=== PATIENT | female | born 1965 | race Caucasian/White ===

== ENCOUNTER → 2025-05-01 | Outpatient (CLI) | payer MEDICAID, SELFPAY ==
--- NOTE | 2025-05-01 09:41 | XR_ITS ---
Examination: Bilateral hips, AP pelvis, 5 views Technique: AP, lateral views both hips, AP pelvis, 5 views Exam date and time: May 01, 2025, 0957 hours INDICATION: Bilateral hip pain beginning 2 weeks ago. FINDINGS: Prominent osteopenia Mild narrowing hip joints No hip or pelvic fracture No hip dislocations IMPRESSION: Mild narrowing hip joints
--- NOTE | 2025-05-01 09:41 | XR_ITS ---
EXAMINATION: Right knee 4 views TECHNIQUE: AP oblique lateral axial right knee 4 views Date and time: May 01, 2025, 10 0 7:00 a.m. INDICATIONS: Right knee pain beginning 2 weeks ago. 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
--- NOTE | 2025-05-01 09:41 | XR_ITS ---
Examination: Foot, right, 3 views Technique: AP, oblique, lateral views foot, 3 views Date and time of exam: January 30, 2025, 0957 hours INDICATION: Right foot weakness and pain 2 weeks difficulty walking. FINDINGS: Prominent osteopenia Mild osteoarthritis first metatarsophalangeal joint 4 mm posterior 8 mm plantar bony calcaneal spurs No fracture IMPRESSION: Mild osteoarthritis first metatarsophalangeal joint Plantar posterior bony calcaneal spurs as above
--- NOTE | 2025-05-01 09:41 | XR_ITS ---
Examination: Lumbar spine, 5 views Technique: Lumbar spine AP, lateral, coned lateral lower lumbar spine, bilateral obliques 5 views Exam date and time: May 01, 2025, 0957 hours INDICATIONS: Lower back pain beginning 2 weeks ago. FINDINGS: Thoracolumbar levoscoliosis 12 degrees Severe osteopenia Moderate facet arthropathy Prominent thoracic spondylosis Grade 3 spondylolisthesis L5 on S1 with advanced degenerative disc disease at this level IMPRESSION: Grade 3 spondylolisthesis L5 on S1 with advanced degenerative disc disease at this level
== END | disposition home or self-care (01) ==
PROVIDERS: PCP Physician Assistant; Referring Provider Physician Assistant; Visit Provider Physician Assistant
DX: M19.071 Primary osteoarthritis, right ankle and foot (principal); M77.31 Calcaneal spur, right foot; M17.11 Unilateral primary osteoarthritis, right knee; M25.852 Other specified joint disorders, left hip; M25.851 Other specified joint disorders, right hip; M43.16 Spondylolisthesis, lumbar region; M51.370 Other intervertebral disc degeneration, lumbosacral region with discogenic back pain only; Z91.81 History of falling
CPT/HCPCS: 72110; 73523; 73564; 73630